=== PATIENT | male | born 1965 | race Two or more races ===

== ENCOUNTER 2025-06-14 07:00 | Day surgery (SDC) | payer MEDICAID, OTHER ==
[2025-06-14] VITALS (9 sets, daily range): BP systolic 102–118; BP diastolic 55–77; PULSE 49–60; RESP 10–15; TEMP 98; O2SAT 94–97
[~2025-06-14] VITALS: Ht 165.1 cm; Wt 72.1 kg
[~2025-06-14 07:00] MED LIST: ASPI-543 PO; ATOR40TA52 PO; NITR0.4S29 SL; POM
[2025-06-14] MEDS: IODIXANOL 320MG/ML 100ML BTL IV ONE (08:18)
[2025-06-14] MEDS: ANGIOMAX 250 MG VIAL IV ONE (08:49)
[2025-06-14] MEDS: LIDOCAINE 2%HCL (LOCAL ANESTH.) INJ 20ML MDV ONE (08:50)
[2025-06-14] MEDS: SODIUM CHL 0.9% 0 ML ONE (08:50)
[2025-06-14] MEDS: fentaNYL CITRATE 100 MCG/2 ML VL ONE ×2 (08:50→09:45)
[2025-06-14] MEDS: MIDAZOLAM HCL 2MG/2ML 2ml VIAL (1mg/ml) ONE ×2 (08:50→09:46)
[2025-06-14] MEDS: VERAPAMIL 2.5MG/ML INJ 2ML VIAL IV ONE (08:50)
[2025-06-14] MEDS: HEPARIN SODIUM (PORCINE) 5000 UNITS/ML 1ML VIAL ONE (08:50)
--- NOTE | 2025-06-14 09:38 | DVHOP2 ---
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 US guided vascular access saved to pacs system PREOPERATIVE DIAGNOSES: Abnormal stress test with CCS class 3 angina, POSTOP DIAGNOSIS: moderate cad DESCRIPTION OF PROCEDURE: The patient or appropriate family signed informed consent understanding the risks, benefits and alternatives of the procedure, they wished to proceed. The patient was brought to the cardiac tutorial laboratory supervisor [place] The patient was prepped in a sterile fashion. Sedation was used per cardiac cath protocol. I administered 2 mL of 2% lidocaine to the right wrist. With an antegrade front wall puncture. I cannulated the right radial artery but couldnt wire. the vessel was diminutive on US as well. therefore i had to abandom and go femorral approach. i gave 5 cc of lidocaine to R groin and with US guidance cannulated the patent R MANAGER GOVERNMENT. next 6F sheath placed . Next, Next, a - 6French JR4 JL4 and pigtail were used for coronary angiogram and LVEDP measurement and pressure pullback. At the completion of procedure, all guides and wires were removed, and there were no immediate complications. angioseal used for closure after IF angiogram. FINDINGS: RCA: Moderate vessel off the right sinus of Valsalva, there is no severe flow limiting stenosis. non dominant LEFT MAIN: Moderate size left main, it bifurcates into LAD and circumflex. CIRCUMFLEX: Moderate to large dominant caliber vessel coming off the left main with no flow limiting stenosis. LAD: LAD is a moderate caliber vessel coming of the left main. 40-50% mid LAD long tubular lesion about 40 mm in length. distal LAD is patent LVEDP of 12 mmhg CONCLUSIONS: 1. moderate CAD PLAN: Aggressive risk factor modification and medical management for the patient. ISABEL LUQUE MD Jun 14, 2025 09:38
--- NOTE | 2025-06-14 14:22 | ECG ---
[facility] Test Date: 2025-06-14 Test Time: 07:55:52 Pat Name: CHUY LEACH Department: Room: Gender: M Loader Technician: JACQUELYN : 1965 Requested By: ISABEL LUQUE Order Number: [id number] Reading MD: Price Arndt Measurements Intervals [place] Rate: 52 P: -24 [place]: 184 QRS: 50 QRSD: 104 T: 43 QT: 420 QTc: 390 Interpretive Statements Sinus bradycardia Septal infarct , age undetermined Electronically Signed On 06-17-2025 21:07:26 PDT by Price Arndt Please click the below link to view image of tracing.
== END 2025-06-14 12:58 | disposition home or self-care (01) ==
LOC: CATH 07:00
PROVIDERS: ATTEND Internal Medicine
DX: I25.10 Atherosclerotic heart disease of native coronary artery without angina pectoris (principal); I10 Essential (primary) hypertension; I25.118 Atherosclerotic heart disease of native coronary artery with other forms of angina pectoris; R00.2 Palpitations; R07.89 Other chest pain; F17.210 Nicotine dependence, cigarettes, uncomplicated; I25.2 Old myocardial infarction
CPT/HCPCS: 93005; 93458; C1760; C1769; C1894; J1644; J2250; J3010; J7030; Q9967; 99152